=== PATIENT | female | born 1965 | race African-American/Black ===

== ENCOUNTER 2017-03-21 11:04 | Emergency (ER) | payer SELFPAY ==
[~2017-03-21] VITALS: Ht 165.1 cm; Wt 49.9 kg
[2017-03-21 11:04] VITALS: BP 150/106
[2017-03-21] MEDS ORDERED: Bacitracin Oint UD TOPIC ONE (12:09)
[2017-03-21 13:08] LABS: BASOPHILS % (AUTO) 0.9 % (0.0-2.0); EOSINOPHILS % (AUTO) 0.3 % (0.0-3.0); LYMPHOCYTES % (AUTO) 50.3 % (20.0-45.0); MEAN CORPUSCULAR HEMOGLOBIN 29.7 PG (27.0-31.0); MEAN CORPUSCULAR HGB CONC 32.8 G/DL (32.0-36.0); MEAN CORPUSCULAR VOLUME 90 FL (80-99); MEAN PLATELET VOLUME 7.5 FL (6.5-10.1); MONOCYTES % (AUTO) 4.8 % (1.0-10.0); NEUTROPHILS % (AUTO) 43.7 % (45.0-75.0); PLATELET COUNT 189 K/UL (150-450); RED BLOOD COUNT 5.34 M/UL (4.20-5.40); RED CELL DISTRIBUTION WIDTH 12.2 % (11.6-14.8); WHITE BLOOD COUNT 5.2 K/UL (4.8-10.8)
[2017-03-21 13:28] VITALS: BP 147/93
[2017-03-21 13:40] LABS: ACETAMINOPHEN < 10 ug/mL (10-30); ALANINE AMINOTRANSFERASE 20 U/L (3-33); ALBUMIN/GLOBULIN RATIO 1.2 (1.0-2.7); ALCOHOL < 10 mg/dL; ANION GAP 11 (5-15); ASPARTATE AMINO TRANSFERASE 28 U/L (5-40); CALCIUM 9.2 mg/dL (8.6-10.2); CARBON DIOXIDE 26 mEQ/L (20-30); CHLORIDE 104 mEQ/L (98-107); CREATININE 0.6 mg/dL (0.5-0.9); GLOMERULAR FILTRATION RATE > 60 mL/min (>60); HEMOLYSIS 7; POTASSIUM 3.3 mEQ/L (3.4-4.9); SODIUM 141 mEQ/L (135-145); TOTAL PROTEIN 6.5 g/dL (6.6-8.7)
--- NOTE | 2017-03-21 14:55 | Emergency Room Report ---
History of Present Illness General Chief Complaint: Behavioral Complaint Source: Patient Present Illness HPI This patient complains of suicidal ideation. She states that she will cut her arm. She states she took a knife and did superficial cuts on her left arm. She does not feel safe to herself. She wants to . She has no other complaints. Allergies: Coded Allergies: No Known Allergies (Unverified , 03/21/17) Patient History Past Medical History: none Social History: Reports: drug use Now: No Reviewed Nursing Documentation: PMH: Agreed, PSxH: Agreed Nursing Documentation-PMH History Of Psychiatric Problem: Yes - SCHIZOPHRENIA Review of Systems All Other Systems: negative except mentioned in HPI Physical Exam Vital Signs Date Time Temp Pulse Resp B/P Pulse Ox O2 Delivery O2 Flow Rate FiO2 03/21/17 10:59 97.5 80 16 150/106 97 Room Air Sp02 EP Interpretation: reviewed, normal General Appearance: no apparent distress, alert, GCS 15, non-toxic Head: normocephalic, atraumatic Eyes: bilateral eye PERRL, bilateral eye normal inspection ENT: hearing grossly normal, normal pharynx, no angioedema, normal voice Neck: full range of motion, supple/symm/no masses Respiratory: chest non-tender, lungs clear, normal breath sounds, speaking full sentences Cardiovascular #1: regular rate, rhythm, no edema Gastrointestinal: normal bowel sounds, non tender, soft, non-distended, no guarding, no rebound Rectal: deferred Musculoskeletal: back normal, gait/station normal, normal range of motion, non- tender Neurologic: alert, oriented x3, responsive, motor strength/tone normal, sensory intact, speech normal Psychiatric: judgement/insight normal, memory normal, depressed affect, other - SI Skin: warm/dry, well hydrated, other - Mid L. arm with superficial lacerations and a contusion quarter sized area. Medical Decision Making Diagnostic Impression: Primary Impression: Suicidal ideation ER Course This patient presents with suicidal ideation and a plan. The patient has superficial cuts on her left arm where she was thinking of cutting her arm and wrist. She is suicidal. She is noted to have positive urine drug screen for cocaine. However, the patient does not appear intoxicated at this time and has a flat affect. She could be calming down from cocaine, however she is not acutely intoxicated. The patient is on a 51:50 hold, however she is voluntary. This patient is medically cleared for inpatient psychiatric care. She will be transferred to an inpatient psychiatric Hospital. Labs Test 03/21/17 12:57 03/21/17 14:05 White Blood Count 5.2 K/UL (4.8-10.8) Red Blood Count 5.34 M/UL (4.20-5.40) Hemoglobin 15.8 G/DL (12.0-16.0) Hematocrit 48.2 % (37.0-47.0) Mean Corpuscular Volume 90 FL (80-99) Mean Corpuscular Hemoglobin 29.7 PG (27.0-31.0) Mean Corpuscular Hemoglobin Concent 32.8 G/DL (32.0-36.0) Red Cell Distribution Width 12.2 % (11.6-14.8) Platelet Count 189 K/UL (150-450) Mean Platelet Volume 7.5 FL (6.5-10.1) Neutrophils (%) (Auto) 43.7 % (45.0-75.0) Lymphocytes (%) (Auto) 50.3 % (20.0-45.0) Monocytes (%) (Auto) 4.8 % (1.0-10.0) Eosinophils (%) (Auto) 0.3 % (0.0-3.0) Basophils (%) (Auto) 0.9 % (0.0-2.0) Sodium Level 141 mEQ/L (135-145) Potassium Level 3.3 mEQ/L (3.4-4.9) Chloride Level 104 mEQ/L (98-107) Carbon Dioxide Level 26 mEQ/L (20-30) Anion Gap 11 (5-15) Blood Urea Nitrogen 8 mg/dL (7-23) Creatinine 0.6 mg/dL (0.5-0.9) Estimat Glomerular Filtration Rate > 60 mL/min (>60) Glucose Level 86 mg/dL (74-106) Calcium Level 9.2 mg/dL (8.6-10.2) Total Bilirubin 0.6 mg/dL (0.0-1.2) Aspartate Amino Transf (AST/SGOT) 28 U/L (5-40) Alanine Aminotransferase (ALT/SGPT) 20 U/L (3-33) Alkaline Phosphatase 62 U/L (35-104) Total Protein 6.5 g/dL (6.6-8.7) Albumin 3.6 g/dL (3.5-5.2) Globulin 2.9 g/dL Albumin/Globulin Ratio 1.2 (1.0-2.7) Thyroid Stimulating Hormone (TSH) 1.010 uIU/mL (0.300-4.500) Salicylates Level < 1 mg/dL (10-30) Acetaminophen Level < 10 ug/mL (10-30) Serum Alcohol < 10 mg/dL Urine HCG, Qualitative Negative Urine Opiates Screen Negative (NEGATIVE) Urine Barbiturates Screen Negative (NEGATIVE) Phencyclidine (PCP) Screen Negative (NEGATIVE) Urine Amphetamines Screen Negative (NEGATIVE) Urine Benzodiazepines Screen Negative (NEGATIVE) Urine Cocaine Screen Positive (NEGATIVE) Urine Marijuana (THC) Screen Negative (NEGATIVE) Last Vital Signs Date Time Temp Pulse Resp B/P Pulse Ox O2 Delivery O2 Flow Rate FiO2 03/21/17 13:28 98.1 76 16 147/93 97 Room Air Disposition: XFER TO PSYCH HOSP/UNIT Condition: Serious Referrals: NOT CHOSEN SARAH/,REFERRING (PCP) GENE LANE D.O. Mar 21, 2017 14:55
--- NOTE | 2017-03-21 15:12 | Consultation ---
History of Present Illness General Chief Complaint: Behavioral Complaint Present Illness HPI 51 yo female with hx of cocaine dependence and unknown psychiatric disorder. who came to the ER after she caught herself. During the evaluation the pt was drowsy and was unable to remain awake and participate in eval. Per Er doctor the pt should go to psych and pet team was called. Allergies: Coded Allergies: No Known Allergies (Unverified , 03/21/17) Patient History History Provided By: Patient, Medical Record, PMD Healthcare decision maker Resuscitation status Advanced Directive on File Past Medical/Surgical History Past Medical/Surgical History: (1) Suicidal ideation Review of Systems Psychiatric: Reports: SI, depressed feelings, prior hx Physical Exam General Appearance: no apparent distress, lethargic, thin Neurologic: responsive Last 24 Hour Vital Signs Date Time Temp Pulse Resp B/P Pulse Ox O2 Delivery O2 Flow Rate FiO2 03/21/17 13:28 98.1 76 16 147/93 97 Room Air 03/21/17 11:04 97.5 80 16 150/106 97 Room Air 03/21/17 10:59 97.5 80 16 150/106 97 Room Air Laboratory Tests Test 03/21/17 12:57 03/21/17 14:05 White Blood Count 5.2 K/UL (4.8-10.8) Red Blood Count 5.34 M/UL (4.20-5.40) Hemoglobin 15.8 G/DL (12.0-16.0) Hematocrit 48.2 % (37.0-47.0) H Mean Corpuscular Volume 90 FL (80-99) Mean Corpuscular Hemoglobin 29.7 PG (27.0-31.0) Mean Corpuscular Hemoglobin Concent 32.8 G/DL (32.0-36.0) Red Cell Distribution Width 12.2 % (11.6-14.8) Platelet Count 189 K/UL (150-450) Mean Platelet Volume 7.5 FL (6.5-10.1) Neutrophils (%) (Auto) 43.7 % (45.0-75.0) L Lymphocytes (%) (Auto) 50.3 % (20.0-45.0) H Monocytes (%) (Auto) 4.8 % (1.0-10.0) Eosinophils (%) (Auto) 0.3 % (0.0-3.0) Basophils (%) (Auto) 0.9 % (0.0-2.0) Sodium Level 141 mEQ/L (135-145) Potassium Level 3.3 mEQ/L (3.4-4.9) L Chloride Level 104 mEQ/L (98-107) Carbon Dioxide Level 26 mEQ/L (20-30) Anion Gap 11 (5-15) Blood Urea Nitrogen 8 mg/dL (7-23) Creatinine 0.6 mg/dL (0.5-0.9) Estimat Glomerular Filtration Rate > 60 mL/min (>60) Glucose Level 86 mg/dL (74-106) Calcium Level 9.2 mg/dL (8.6-10.2) Total Bilirubin 0.6 mg/dL (0.0-1.2) Aspartate Amino Transf (AST/SGOT) 28 U/L (5-40) Alanine Aminotransferase (ALT/SGPT) 20 U/L (3-33) Alkaline Phosphatase 62 U/L (35-104) Total Protein 6.5 g/dL (6.6-8.7) L Albumin 3.6 g/dL (3.5-5.2) Globulin 2.9 g/dL Albumin/Globulin Ratio 1.2 (1.0-2.7) Thyroid Stimulating Hormone (TSH) 1.010 uIU/mL (0.300-4.500) Salicylates Level < 1 mg/dL (10-30) L Acetaminophen Level < 10 ug/mL (10-30) L Serum Alcohol < 10 mg/dL Urine HCG, Qualitative Negative Urine Opiates Screen Negative (NEGATIVE) Urine Barbiturates Screen Negative (NEGATIVE) Phencyclidine (PCP) Screen Negative (NEGATIVE) Urine Amphetamines Screen Negative (NEGATIVE) Urine Benzodiazepines Screen Negative (NEGATIVE) Urine Cocaine Screen Positive (NEGATIVE) H Urine Marijuana (THC) Screen Negative (NEGATIVE) Height (Feet): 5 Height (Inches): 5.00 Weight (Pounds): 110 Assessment/Plan Status: stable Assessment/Plan most likely drug related. pet team is ordered to transfer the pt out per er Kirsten Art M.D. Mar 21, 2017 15:12
[2017-03-21 19:15] VITALS: BP 150/85
[2017-03-21 19:45] VITALS: BP 144/80
== END 2017-03-21 19:45 ==
LOC: EDBD 11:04 → EMR 12:09
DX: F20.9 Schizophrenia, unspecified (principal); R45.851 Suicidal ideations; F19.10 Other psychoactive substance abuse, uncomplicated
CPT/HCPCS: 36415; 80053; 80300; 81025; 84443; 85025; 99285; G0480; 80329; J8499